=== PATIENT | male | born 1990 ===

== ENCOUNTER 2016-12-24 21:14 | Emergency (ER) | payer SELFPAY ==
[2016-12-24] MEDS ORDERED: Lidocaine 1% Inj (20ml) ONE (21:31)
[2016-12-24 21:35] VITALS: TEMP 99.8
--- NOTE | 2016-12-24 22:10 | C.PDOC ---
History Of Present Illness 26 year old male who presents to the ER after he cut his left 2nd finger with a kitchen knife while making ceviche [employer]. Patient states he had impressive arterial spurting which he bandaged; patient then ate his ceviche and came to the ER after. Denies weakness or numbness. Chief Complaint (Nursing): Abnormal Skin Integrity History Per: Patient History/Exam Limitations: no limitations Onset/Duration Of Symptoms: Hrs Current Symptoms Are (Timing): Still Present Recent travel outside of the [place]: No Past Medical History Reviewed: Historical Data, Nursing Documentation, Vital Signs Vital Signs: Last Vital Signs Temp 99.8 F H 12/24/16 21:30 Pulse 86 12/24/16 22:32 Resp 21 12/24/16 22:32 BP 108/64 12/24/16 22:32 Pulse Ox 100 12/24/16 22:32 - Medical History PMH: No Chronic Diseases Surgical History: No Surg Hx Family History: States: Unknown Family Hx - Social History Hx Tobacco Use: Yes (light smoker) Hx Alcohol Use: Yes Hx Substance Use: No - Immunization History Hx Tetanus Toxoid Vaccination: Yes (2016 per pt) Hx Influenza Vaccination: No Hx Pneumococcal Vaccination: No Review Of Systems Skin: Positive for: Other (Laceration) Neurological: Negative for: Weakness, Numbness Physical Exam - Physical Exam Appears: Non-toxic Skin: Warm, Dry Head: Atraumatic, Normacephalic Oral Mucosa: Moist Extremity: Capillary Refill (Good), Other (2cm laceration to distal vental left 2nd finger, normal flexion and extension) Pulses: Left Radial: Normal, Right Radial: Normal Neurological/Psych: Oriented x3, Normal Speech, Normal Cognition ED Course And Treatment O2 Sat by Pulse Oximetry: 99 (Room air) Pulse Ox Interpretation: Normal Progress Note: Tetanus vaccination and motrin administered. Bacitracin applied. Patient tolerated laceration repair without difficulty. Laceration - Laceration Repair Left 2nd finger Wound Length (In cm): 2 Description Of Wound: Linear Wound Cleansed With: Betadine, Sterile Saline Anesthesia: Lidocaine 1% (Digital block) Wound Examination: Irrigated With Saline Wound Closure: [place] (x6 with excellent hemostasis and closure) Wound Complexity: Simple Medical Decision Making Medical Decision Making: impressive bleding @ fingertip c/w arterial bleed Considering risk of prolonged suturing, decision to staple with excellent closure and hemostatic effect preferred and well tolerated Tdap adminstered Disposition Doctor Will See Patient In The: Office Counseled Patient/Family Regarding: Studies Performed, Diagnosis - Disposition Referrals: [facility] [Outside] [facility] [Outside] [facility] [Outside] Disposition: HOME/ ROUTINE Disposition Time: 22:10 Condition: GOOD Additional Instructions: Regressa en 7 mcgrath para sacar las engrapas mantiene limpio y cubierto Llava con jabon y agua diario y applica Bacitracin Ointment diario. Instructions: Finger Laceration (ED) Forms: [facility] ([place]), Work Excuse Print Language: SAMOAN - Clinical Impression Clinical Impression: Finger laceration - Scribe Statement The provider has reviewed the documentation as recorded by the [employer] [place] All medical record entries made by the Scribe were at my direction and personally dictated by me. I have reviewed the chart and agree that the record accurately reflects my personal performance of the history, physical exam, medical decision making, and the department course for this patient. I have also personally directed, reviewed, and agree with the discharge instructions and disposition.
[2016-12-24] MEDS ORDERED: Bacitracin 500 Units/gm Oint Foilpak UD ONE (22:16)
[2016-12-24] MEDS ORDERED: Bacitracin Ointment 30 GM TUBE TOP STA (22:27)
[2016-12-24 22:34] VITALS: BP 108/64; PULSE 86; RESP 21
[2016-12-25 05:14] VITALS: O2SAT 99
== END 2016-12-24 22:35 | disposition home or self-care (01) ==
LOC: C.ER 21:14
DX: S61.211A Laceration without foreign body of left index finger without damage to nail, initial encounter (principal); W26.0XXA Contact with knife, initial encounter; Y93.G9 Activity, other involving cooking and grilling; Z23 Encounter for immunization

== ENCOUNTER 2016-12-25 16:23 | Emergency (ER) | payer SELFPAY ==
[2016-12-25] MEDS ORDERED: Bacitracin 500 Units/gm Oint Foilpak UD ONE (18:20)
--- NOTE | 2016-12-25 18:33 | C.PDOC ---
History Of Present Illness 26 year old male presents to the ED for a wound check. Patient sustained a laceration to his left second finger yesterday. He returns to the ED because the area is "throbbing." Patient denies swelling, erythema or discharge from wound. Time Seen by Provider: 12/25/16 18:16 Chief Complaint (Nursing): Finger,Hand,&Wrist History Per: Patient History/Exam Limitations: no limitations Onset/Duration Of Symptoms: Hrs Current Symptoms Are (Timing): Still Present Location Of Injury: Left: Hand (second finger) Quality Of Symptoms: Other (throbbing ). denies: Swollen, Draining Additional History Per: Patient Past Medical History Reviewed: Historical Data, Nursing Documentation, Vital Signs Vital Signs: Last Vital Signs Temp 97.9 F 12/25/16 19:51 Pulse 78 12/25/16 19:51 Resp 20 12/25/16 19:51 BP 130/82 12/25/16 19:51 Pulse Ox 98 12/25/16 22:01 - Medical History PMH: No Chronic Diseases Surgical History: No Surg Hx Family History: States: Unknown Family Hx - Social History Hx Tobacco Use: Yes (light smoker) Hx Alcohol Use: Yes Hx Substance Use: No - Immunization History Hx Tetanus Toxoid Vaccination: Yes (2016 per pt) Hx Influenza Vaccination: No Hx Pneumococcal Vaccination: No Review Of Systems Skin: Positive for: Other (wound check s/p laceration to left second finger. no swelling, discharge, erythema ) Physical Exam - Physical Exam Appears: Non-toxic, No Acute Distress Skin: Normal Color, Warm, Dry, Other ([place]lon intact on left second finger. no discharge, no erythema ) Head: Atraumatic, Normacephalic Eye(s): bilateral: Normal Inspection, EOMI Nose: Normal Oral Mucosa: Moist Chest: Symmetrical Respiratory: No Accessory Muscle Use Extremity: Normal ROM, No Tenderness, Capillary Refill (less than 2 seconds), No Deformity, No Swelling Pulses: Left Radial: Normal, Right Radial: Normal Neurological/Psych: Normal Speech, Normal Cognition, Normal Motor, Normal Sensation ED Course And Treatment O2 Sat by Pulse Oximetry: 98 (on RA) Pulse Ox Interpretation: Normal Progress Note: Case discussed with Dr. Haynes who also evaluated the patient and agreed upon plan and discharge. Wound cleasned, finger spling applied, instructed wound check in 2 days. Disposition - Disposition Referrals: Debbie Villegas MD [Staff Provider] - Disposition: HOME/ ROUTINE Disposition Time: 18:30 Condition: STABLE Additional Instructions: Elevate the finger. Watch for signs of infection. Return to ER if symptoms persist or worsen. Instructions: Finger Laceration (ED) Forms: [facility] (Ukrainian) - Clinical Impression Clinical Impression: Finger laceration - PA / VP DESIGN / Resident Statement MD/DO has reviewed & agrees with the documentation as recorded. - Scribe Statement The provider has reviewed the documentation as recorded by the Scribe (Haley Galloway) All medical record entries made by the Scribe were at my direction and personally dictated by me. I have reviewed the chart and agree that the record accurately reflects my personal performance of the history, physical exam, medical decision making, and the department course for this patient. I have also personally directed, reviewed, and agree with the discharge instructions and disposition.
[2016-12-25 19:51] VITALS: BP 130/82; PULSE 78; RESP 20; TEMP 97.9
[2016-12-25 21:58] VITALS: O2SAT 98
== END 2016-12-25 19:55 | disposition home or self-care (01) ==
LOC: C.ER 16:23
DX: S61.211D Laceration without foreign body of left index finger without damage to nail, subsequent encounter (principal); X58.XXXD Exposure to other specified factors, subsequent encounter